=== PATIENT | male | born 1970 | race Caucasian/White ===

== ENCOUNTER 2017-05-27 16:00 | Outpatient (RCR) | payer OTHER ==
[2016-09-21 17:26] VITALS: BP 125/78
== END 2017-06-23 11:38 | disposition home or self-care (01) ==
LOC: PT 16:00
DX: M77.12 Lateral epicondylitis, left elbow (principal); M77.11 Lateral epicondylitis, right elbow

== ENCOUNTER → 2017-09-15 | Outpatient (CLI) | payer OTHER ==
[2016-09-21 17:26] VITALS: BP 125/78
== END ==
LOC: RAD 07:39
DX: M75.82 Other shoulder lesions, left shoulder (principal); M75.52 Bursitis of left shoulder; M19.012 Primary osteoarthritis, left shoulder; M50.222 Other cervical disc displacement at C5-C6 level; M48.02 Spinal stenosis, cervical region

== ENCOUNTER 2024-11-26 17:14 | Emergency (ER) | payer OTHER ==
[~2024-11-26] VITALS: Ht 177.8 cm; Wt 110.5 kg
[~2024-11-26 17:14] MED LIST: CYCLOBENZAPRINE10 M1 PO; SIMVASTATIN80 MG PO
[2024-11-26 18:40] LABS: BASO # 0.02 K/mm3 (0.02-0.10); EOS % 1.4 % (0.0-4.0); HEMATOCRIT 43.7 % (42.0-52.0); HEMOGLOBIN 14.5 g/dL (13.5-18.0); LYMPH# 2.51 K/mm3 (1.50-4.00); MEAN CELL VOLUME 84 fl (78-100); MEAN CORPUSCULAR HEMOGLOBIN 28 pg (27-31); MEAN CORPUSCULAR HGB CONC 33 g/dL (33-37); MEAN PLATELET VOLUME 8.9 fl (7.4-10.4); MONO # 0.54 K/mm3 (0.20-0.80); NEU # 4.16 K/mm3 (1.40-6.50); PLATELET COUNT 305 K/mm3 (130-400); RED CELL DISTRIBUTION WIDTH 13.5 % (11.5-14.5); WHITE BLOOD COUNT 7.3 K/mm3 (4.8-10.8)
[2024-11-26 18:43] LABS: ALBUMIN 4.2 g/dL (3.5-5.0)
[2024-11-26 18:44] LABS: CALCIUM 9.6 mg/dL (8.3-10.5)
[2024-11-26 18:46] LABS: TOTAL PROTEIN 7.4 g/dL (6.4-8.3)
[2024-11-26 18:47] LABS: TOTAL BILIRUBIN 0.3 mg/dL (0.2-1.2)
[2024-11-26 18:51] LABS: URINE WBC 0 /hpf (0-3)
[2024-11-26 19:03] LABS: URINE APPEARANCE CLEAR (CLEAR); URINE COLOR YELLOW (YELLOW)
[2024-11-26 19:04] LABS: URINE BILIRUBIN NEGATIVE (NEGATIVE); URINE BLOOD NEGATIVE (NEGATIVE); URINE GLUCOSE NEGATIVE (NEGATIVE); URINE KETONE NEGATIVE (NEGATIVE); URINE LEUKOCYTE ESTERASE NEGATIVE (NEGATIVE); URINE NITRATE NEGATIVE (NEGATIVE); URINE PROTEIN(semi-quant) NEGATIVE (NEGATIVE)
[2024-11-26] MEDS ORDERED: Ketorolac 30 MG/ML VIAL IV ONE (20:15)
[2024-11-26] MEDS ORDERED: Iohexol 300 - 100 ML VIAL IV ONE (20:33)
[2024-11-26] MEDS ORDERED: NS 100 ML IV SCH (20:34)
[2024-11-26] MEDS ORDERED: KETOROLAC10 MG PO (20:46)
[2024-11-26 21:01] VITALS: BP 133/93
== END 2024-11-26 21:02 | disposition home or self-care (01) ==
LOC: ED 17:14
PROVIDERS: Physician Assistant
DX: R10.13 Epigastric pain (principal); M54.6 Pain in thoracic spine
CPT/HCPCS: J1885; Q9967

== ENCOUNTER → 2024-12-05 | Outpatient (CLI) | payer OTHER ==
[~2024-12-05] MED LIST changes: +KETOROLAC10 MG PO
== END ==
LOC: RAD 08:40
DX: M51.34 Other intervertebral disc degeneration, thoracic region (principal); M51.360 Other intervertebral disc degeneration, lumbar region with discogenic back pain only